=== PATIENT | female | born 1950 | race African-American/Black ===

== ENCOUNTER 2018-03-17 07:15 | Inpatient (IN) ==
[2018-03-17 08:25] LABS: Basophils % 0.2 % (0.0-0.8); Eosinophils # 0.1 10*3/uL (0.0-0.87); Eosinophils % 0.5 % (0.00-10.9); Hematocrit 38.2 VOL% (35.7-47.0); Hemoglobin 12.7 GM/DL (12.0-16.0); Immature Granulocytes % 0.3 %; Immature Granulocytes Absolute 0.03 #; Lymphocytes # 1.2 10*3/uL (1.4-4.0); Lymphocytes % 13.3 % (21.3-54.2); Mean Corpuscular HGB Conc 33.2 GM/DL (32-36); Mean Corpuscular Hemoglobin 29 PG (27-34); Mean Corpuscular Volume 87.4 FL (87-102); Mean Platelet Volume 9.3 FL (9.6-12.0); Monocytes # 0.6 10*3/uL (0.11-0.8); Monocytes % 6.4 % (1.7-12.7); Neutrophils # 7.4 10*3/uL (1.4-7.4); Neutrophils % 79.3 % (38.7-73.9); Platelet Count 316 T/CUMM (130-400); Red Blood Count 4.37 MC/CUMM (3.8-5.5); Red Cell Distribution Width 13.7 % (9.3-17.3); White Blood Count 9.3 T/CUMM (4-12)
[2018-03-17 08:31] LABS: INR 0.9; PT Patient Result 9.8 SECS
[2018-03-17 08:48] LABS: Alanine Aminotransferase 12 U/L (13-56); Albumin 3.9 G/DL (3.4-5.0); Alkaline Phosphatase 172 U/L (45-117); Aspartate Amino Transferase 11 U/L (0-37); Bilirubin,Total < 0.39 MG/DL (0.2-1.0); Blood Urea Nitrogen 21 MG/DL (7-18); Calcium 9.1 MG/DL (8.5-10.1); Glucose 163 MG/DL (74-106); Osmolality,Calculated 281.7 MOS/KG (273-304); Potassium 4.7 MMOL/L (3.5-5.1); Sodium 138 MMOL/L (136-145); Total Protein 8.1 G/DL (6.4-8.3)
[2018-03-17] MEDS ORDERED: ACETAMINOPHEN 325 MG TABLET PO PRN (10:56)
[2018-03-17] MEDS ORDERED: FLUTICASONE 50 MCG NASAL SPRAY 16 GM BOTTLE BOTH NARES PRN (11:01)
[2018-03-17] MEDS ORDERED: traMADol 50 MG TABLET PO PRN (11:01)
[2018-03-17] MEDS ORDERED: hydrALAZINE 20 MG/1 ML VIAL IV PRN (11:04)
[2018-03-17 14:43] LABS: Hematocrit 39.6 VOL% (35.7-47.0); Hemoglobin 13.3 GM/DL (12.0-16.0)
[2018-03-17] MEDS: PANTOPRAZOLE 40 MG TABLET PO SCH (16:10)
[2018-03-17] MEDS: PRAVASTATIN 20 MG TABLET PO SCH (16:10)
[2018-03-17] MEDS: LEVOFLOXACIN INJ 750 MG in PREMIX 1 EACH IV SCH (16:10)
[2018-03-17] MEDS: SODIUM CHLORIDE 0.9% 1,000 ML IV SCH (16:10)
[2018-03-17] MEDS: ONDANSETRON 4 MG/2 ML VIAL IV PRN (16:53)
[2018-03-17] MEDS: metroNIDAZOLE INJ 500 MG in PREMIX 1 EACH IV SCH ×2 (18:37→23:43)
[2018-03-17 19:31] LABS: Hematocrit 39.1 VOL% (35.7-47.0)
[2018-03-17 20:40] LABS: Hematocrit 40.3 VOL% (35.7-47.0); Hemoglobin 13.3 GM/DL (12.0-16.0)
[2018-03-18] MEDS: metroNIDAZOLE INJ 500 MG in PREMIX 1 EACH IV SCH ×3 (05:08→17:45)
[2018-03-18 05:29] LABS: Hematocrit 37.8 VOL% (35.7-47.0); Hemoglobin 12.9 GM/DL (12.0-16.0)
[2018-03-18 05:33] LABS: Basophils % 0.2 % (0.0-0.8); Eosinophils # 0.1 10*3/uL (0.0-0.87); Eosinophils % 1.3 % (0.00-10.9); Hematocrit 37.5 VOL% (35.7-47.0); Hemoglobin 12.8 GM/DL (12.0-16.0); Immature Granulocytes % 0.5 %; Immature Granulocytes Absolute 0.03 #; Lymphocytes # 1.4 10*3/uL (1.4-4.0); Lymphocytes % 23.8 % (21.3-54.2); Mean Corpuscular HGB Conc 34.1 GM/DL (32-36); Mean Corpuscular Hemoglobin 29 PG (27-34); Mean Corpuscular Volume 85.6 FL (87-102); Mean Platelet Volume 9.9 FL (9.6-12.0); Monocytes # 0.8 10*3/uL (0.11-0.8); Monocytes % 12.4 % (1.7-12.7); Neutrophils # 3.7 10*3/uL (1.4-7.4); Neutrophils % 61.8 % (38.7-73.9); Platelet Count 348 T/CUMM (130-400); Red Blood Count 4.38 MC/CUMM (3.8-5.5); Red Cell Distribution Width 13.5 % (9.3-17.3)
[2018-03-18 05:59] LABS: Calcium 9.3 MG/DL (8.5-10.1)
[2018-03-18 06:00] LABS: Osmolality,Calculated 277.5 MOS/KG (273-304); Potassium 4.9 MMOL/L (3.5-5.1)
[2018-03-18] MEDS: amLODIPine 10 MG TABLET PO SCH (09:21)
[2018-03-18] MEDS: LISINOPRIL 20 MG TABLET PO SCH (09:21)
[2018-03-18] MEDS: PANTOPRAZOLE 40 MG TABLET PO SCH (09:21)
[2018-03-18] MEDS: POTASSIUM CHLORIDE 10 MEQ TABLET PO SCH (09:21)
[2018-03-18] MEDS ORDERED: PHENYLEPH/MINERAL OIL/PETROLAT 57 GM TUBE TOP PRN (11:20)
[2018-03-18] MEDS ORDERED: WITCH HAZEL PADS 100/JAR TOP PRN (11:20)
[2018-03-18] MEDS ORDERED: BISACODYL 5 MG TABLET PO ONE (12:00)
[2018-03-18 13:05] LABS: Hematocrit 41.9 VOL% (35.7-47.0); Hemoglobin 13.8 GM/DL (12.0-16.0)
[2018-03-18] MEDS: PRAVASTATIN 20 MG TABLET PO SCH (13:42)
[2018-03-18] MEDS: SODIUM CHLORIDE 0.9% 1,000 ML IV SCH (13:45)
[2018-03-18] MEDS: LEVOFLOXACIN INJ 750 MG in PREMIX 1 EACH IV SCH ×2 (13:46→15:21)
[2018-03-18] MEDS ORDERED: POLYETHYLENE GLYCOL POWDER 255 GM BOTTLE PO ONE (15:00)
[2018-03-18] MEDS: ONDANSETRON 4 MG/2 ML VIAL IV PRN (16:54)
[2018-03-18] MEDS ORDERED: MAGNESIUM CITRATE 300 ML BOTTLE PO ONE (21:00)
[2018-03-19] MEDS: metroNIDAZOLE INJ 500 MG in PREMIX 1 EACH IV SCH ×3 (04:09→15:05)
[2018-03-19 04:26] LABS: Basophils % 0.3 % (0.0-0.8); Eosinophils # 0.1 10*3/uL (0.0-0.87); Eosinophils % 1.1 % (0.00-10.9); Hematocrit 40.2 VOL% (35.7-47.0); Hemoglobin 13.3 GM/DL (12.0-16.0); Immature Granulocytes % 0.5 %; Immature Granulocytes Absolute 0.04 #; Lymphocytes # 1.4 10*3/uL (1.4-4.0); Lymphocytes % 18.1 % (21.3-54.2); Mean Corpuscular HGB Conc 33.1 GM/DL (32-36); Mean Corpuscular Hemoglobin 29 PG (27-34); Mean Corpuscular Volume 87.6 FL (87-102); Mean Platelet Volume 9.5 FL (9.6-12.0); Monocytes # 0.8 10*3/uL (0.11-0.8); Monocytes % 10.5 % (1.7-12.7); Neutrophils # 5.2 10*3/uL (1.4-7.4); Neutrophils % 69.5 % (38.7-73.9); Platelet Count 351 T/CUMM (130-400); Red Blood Count 4.59 MC/CUMM (3.8-5.5); Red Cell Distribution Width 13.6 % (9.3-17.3); White Blood Count 7.5 T/CUMM (4-12)
[2018-03-19 04:53] LABS: Calcium 9.2 MG/DL (8.5-10.1); Osmolality,Calculated 278.4 MOS/KG (273-304); Potassium 4.2 MMOL/L (3.5-5.1)
[2018-03-19] MEDS: amLODIPine 10 MG TABLET PO SCH (14:12)
[2018-03-19] MEDS: PRAVASTATIN 20 MG TABLET PO SCH (14:12)
[2018-03-19] MEDS: PANTOPRAZOLE 40 MG TABLET PO SCH (14:12)
[2018-03-19] MEDS: POTASSIUM CHLORIDE 10 MEQ TABLET PO SCH (14:12)
[2018-03-19] MEDS: LISINOPRIL 20 MG TABLET PO SCH (15:02)
[2018-03-19] MEDS: MESALAMINE 800 MG TABLET PO SCH ×2 (15:03→21:35)
[2018-03-19] MEDS ORDERED: LIDOCAINE 1% 5 ML VIAL ONE (15:10)
[2018-03-19] MEDS ORDERED: PROPOFOL 200 MG/20 ML VIAL IV ONE (15:10)
[2018-03-19] MEDS: LEVOFLOXACIN INJ 750 MG in PREMIX 1 EACH IV SCH (15:26)
[2018-03-19] MEDS: MESALAMINE ENEMA 4 GM/60 ML BOTTLE RECTAL SCH (21:35)
[2018-03-20] MEDS: PANTOPRAZOLE 40 MG TABLET PO SCH (09:05)
[2018-03-20] MEDS: POTASSIUM CHLORIDE 10 MEQ TABLET PO SCH (09:05)
[2018-03-20] MEDS: amLODIPine 10 MG TABLET PO SCH (09:05)
[2018-03-20] MEDS: LISINOPRIL 20 MG TABLET PO SCH (09:05)
[2018-03-20] MEDS: MESALAMINE 800 MG TABLET PO SCH ×3 (09:06→20:37)
[2018-03-20] MEDS: PRAVASTATIN 20 MG TABLET PO SCH (12:25)
[2018-03-20] MEDS: MESALAMINE ENEMA 4 GM/60 ML BOTTLE RECTAL SCH (20:36)
[2018-03-21] MEDS: PANTOPRAZOLE 40 MG TABLET PO SCH (09:37)
[2018-03-21] MEDS: amLODIPine 10 MG TABLET PO SCH (09:37)
[2018-03-21] MEDS: POTASSIUM CHLORIDE 10 MEQ TABLET PO SCH (09:37)
[2018-03-21] MEDS: LISINOPRIL 20 MG TABLET PO SCH (09:37)
[2018-03-21] MEDS: MESALAMINE 800 MG TABLET PO SCH (09:37)
[2018-03-21 12:17] VITALS: BP 146/83
[2018-03-21] MEDS: PRAVASTATIN 20 MG TABLET PO SCH (12:18)
== END 2018-03-21 13:00 | disposition home or self-care (01) | DRG 387 ==
LOC: N.ED 07:15 → SUATTDRO 10:56 → N.EDINP 10:56 → N.4E 13:40
PROVIDERS: ADMIT Internal Medicine; ATTEND Internal Medicine Infectious Disease
PROC: COLONBX (2018-03-19 08:35)